=== PATIENT | male | born 1980 | race Caucasian/White ===

== ENCOUNTER 2018-02-20 12:41 | Emergency (ER) | payer OTHER ==
[2018-02-20 13:17] LABS: MEAN CORPUSCULAR HEMOGLOBIN 30.7 pg (27.0-33.4); MEAN CORPUSCULAR HGB CONC 34.2 g/dL (32.0-36.0); MEAN CORPUSCULAR VOLUME 90 fl (80-97); PLATELET COUNT 270 10^3/uL (150-450); RED BLOOD COUNT 6.56 10^6/uL (4.35-5.55); WHITE BLOOD COUNT 9.7 10^3/uL (4.0-10.5)
[2018-02-20 13:23] LABS: HEMATOCRIT 58.8 % (37.9-51.0)
[2018-02-20 13:35] LABS: ALANINE AMINOTRANSFERASE 43 U/L (21-72); ALBUMIN 4.9 g/dL (3.5-5.0); ALKALINE PHOSPHATASE 98 U/L (38-126); ANION GAP 15 (5-19); ASPARTATE AMINO TRANSFERASE 23 U/L (17-59); BILIRUBIN,DIRECT 0.3 mg/dL (0.0-0.4); BLOOD UREA NITROGEN 18 mg/dL (7-20); CALCIUM 10.1 mg/dL (8.4-10.2); CARBON DIOXIDE 30 mmol/L (22-30); CHLORIDE 101 mmol/L (98-107); GLUCOSE 97 mg/dL (75-110); POTASSIUM 4.5 mmol/L (3.6-5.0); SODIUM 145.7 mmol/L (137-145); TOTAL PROTEIN 8.2 g/dL (6.3-8.2)
[2018-02-20 13:36] LABS: ACETAMINOPHEN < 10 ug/mL (10-30); ALCOHOL < 10 mg/dL (NONE DETECTED); SALICYLATE < 1.0 mg/dL (2.0-20.0)
--- NOTE | 2018-02-20 13:43 | ER Document Report ---
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 Family is concerned about self-harm gestures. They note that he may have taken 28 tablets over the last day pt denies self harm, but family notes that he has been saying how he cant do this anymore TRAVEL OUTSIDE OF THE [place] IN LAST 30 DAYS: No - HPI Onset: Yesterday Onset/Duration: Sudden Quality of pain: No pain Severity: Mild Pain Level: Denies Associated symptoms: Other Exacerbated by: Denies Relieved by: Denies Similar symptoms previously: No Recently seen / treated by doctor: No - Related Data Allergies/Adverse Reactions: levofloxacin [From Levaquin] Allergy (Verified 02/20/18 13:05) Past Medical History - Social History Smoking Status: Never Smoker Cigarette use (# per day): No Chew tobacco use (# tins/day): No Smoking Education Provided: No Frequency of alcohol use: None Drug Abuse: None Family History: Reviewed & Not Pertinent Patient has suicidal ideation: No Patient has homicidal ideation: No Renal/ Medical History: Denies: Hx Peritoneal Dialysis Review of Systems - Review of Systems Notes: REVIEW OF SYSTEMS: CONSTITUTIONAL : Denies fever, chills, or sweats. Denies recent illness. EENT: Denies eye, ear, throat, or mouth pain or symptoms. Denies nasal or sinus congestion or discharge. Denies throat, tongue, or mouth swelling or difficulty swallowing. CARDIOVASCULAR: Denies chest pain. Denies palpitations or racing or irregular heart beat. Denies ankle edema. RESPIRATORY: Denies cough, cold, or chest congestion. Denies shortness of breath, difficulty breathing, or wheezing. GASTROINTESTINAL: Denies abdominal pain or distention. Denies nausea, vomiting , or diarrhea. Denies blood in vomitus, stools, or per rectum. Denies black, tarry stools. Denies constipation. GENITOURINARY: Denies difficulty urinating, painful urination, burning, frequency, blood in urine, or discharge. MUSCULOSKELETAL: Denies back or neck pain or stiffness. Denies joint pain or swelling. SKIN: Denies rash, lesions or sores. HEMATOLOGIC : Denies easy bruising or bleeding. LYMPHATIC: Denies swollen, enlarged glands. NEUROLOGICAL: Denies confusion or altered mental status. Denies passing out or loss of consciousness. Denies dizziness or lightheadedness. Denies headache. Denies weakness or paralysis or loss of use of either side. Denies problems with gait or speech. Denies sensory loss, numbness, or tingling. Denies seizures. PSYCHIATRIC: Initially denied suicidal ideations ALL OTHER SYSTEMS REVIEWED AND NEGATIVE. Dictation was performed using [employer] voice recognition software PHYSICAL EXAMINATION: GENERAL: Well-appearing, well-nourished and in no acute distress. HEAD: Atraumatic, normocephalic. EYES: Pupils equal round and reactive to light, extraocular movements intact, sclera anicteric, conjunctiva are normal. ENT: Nares patent, oropharynx clear without exudates. Moist mucous membranes. NECK: Normal range of motion, supple without lymphadenopathy LUNGS: Breath sounds clear to auscultation bilaterally and equal. No wheezes rales or rhonchi. HEART: Mild tachycardia ABDOMEN: Soft, nontender, nondistended abdomen. No guarding, no rebound. No masses appreciated. Musculoskeletal: Normal range of motion, no pitting or edema. No cyanosis. NEUROLOGICAL: Cranial nerves grossly intact. Normal speech, normal gait. Normal sensory, motor exams PSYCH: Flat affect SKIN: Warm, Dry, normal turgor, no rashes or lesions noted. Physical Exam - Vital signs Vitals: Resp Pulse Ox 31 H 98 02/20/18 12:52 02/20/18 12:52 Course - Re-evaluation Re-evalutation: 02/20/18 18:45 Patient's hemoglobin is noted to be elevated, this may require evaluation at some point, patient was made aware, otherwise he is medically stable and appropriate for evaluation by mental health, family is quite concerned about his behavior and I agree with her concerns - Vital Signs Vital signs: Temp Pulse Resp BP Pulse Ox 98.0 F 20 131/94 H 98 02/20/18 18:44 02/20/18 17:00 02/20/18 16:01 02/20/18 17:00 - Laboratory Result Diagrams: 02/20/18 13:01 02/20/18 13:01 Laboratory results interpreted by me: 02/20/18 02/20/18 02/20/18 13:01 13:01 16:40 RBC 6.56 H Hgb 20.1 H* Hct 58.8 H Seg Neuts % (Manual) 81 H Lymphocytes % (Manual) 6 L Sodium 145.7 H Urine Ketones TRACE H Salicylates < 1.0 L Acetaminophen < 10 L Discharge - Discharge Clinical Impression: Suicidal ideation, Elevated hemoglobin Condition: Stable Disposition: PSYCH HOSP/UNIT Referrals: APOLONIA BECERRA MD [Primary Care Provider] - Follow up as needed
[2018-02-20 13:57] LABS: ABSOLUTE MONOCYTES # (MANUAL) 0.9 10^3/uL (0.1-1.4); ABSOLUTE NEUTROPHILS# (MANUAL) 7.9 10^3/uL (1.7-8.2); BASOPHILS % (MANUAL) 0 % (0-2); EOSINOPHILS % (MANUAL) 0 % (0-6); LYMPHOCYTES % (MANUAL) 6 % (13-45); MONOCYTES % (MANUAL) 9 % (3-13); SEGMENTED NEUTROPHILS % (MAN) 81 % (42-78); TOTAL CELLS COUNTED 100
[2018-02-20 13:58] LABS: PLATELET COMMENT ADEQUATE; RBC MORPHOLOGY COMMENT NORMO-CYTIC/CHROMIC; TOXIC GRANULATION SLIGHT; TOXIC VACUOLATION PRESENT
[2018-02-20 14:00] LABS: HEMOGLOBIN 20.1 g/dL (13.5-17.0)
[2018-02-20 17:12] LABS: APPEARANCE,URINE CLEAR; BILIRUBIN,URINE NEGATIVE (NEGATIVE); COLOR,URINE YELLOW; GLUCOSE, URINE NEGATIVE (NEGATIVE); KETONES,URINE TRACE mg/dL (NEGATIVE); LEUKOCYTE ESTERASE,URINE NEGATIVE (NEGATIVE); NITRITE,URINE NEGATIVE (NEGATIVE); PROTEIN,URINE NEGATIVE (NEGATIVE); UROBILINOGEN,URINE NEGATIVE mg/dL (<2.0)
[2018-02-20 17:45] LABS: URINE AMPHETAMINES SCREEN NEGATIVE; URINE BARBITURATES SCREEN NEGATIVE; URINE BENZODIAZEPINES SCREEN NEGATIVE; URINE COCAINE SCREEN NEGATIVE; URINE MARIJUANA (THC) SCREEN NEGATIVE; URINE METHADONE SCREEN NEGATIVE; URINE PHENCYCLIDINE SCREEN NEGATIVE
[2018-02-20] MEDS ORDERED: NORMAL SALINE 1000 ML 1,000 ML IV ONE (18:49)
--- NOTE | 2018-02-20 22:26 | EKG REPORT ---
SEVERITY:- BORDERLINE ECG - SINUS TACHYCARDIA BORDERLINE T WAVE ABNORMALITIES : Confirmed by: Jameel Cee 20-Feb-2018 22:26:12
--- NOTE | 2018-02-21 07:26 | PSYCHOLOGICAL NOTE ---
Psych Note - Psych Note Psych Note: Reason for consult: Suicidal ideation/ overdose Contact Permissions: Ronnie Sterling . Brittany Sterling, Perla Sterling, and Carlota Sterling ( patient's ) [phone] Patient is a 37-year-old male. Patient reports he feels like the stress was closing in on him. She reports recently he had a drug test at his work and has not had the results yet. Patient reports oxycodones went missing from the [facility]. Patient reports he has a prescription for oxycodone so he knows he is going to test positive. Patient reports he is worried he is going to lose his job. Patient reports he is worried that he is going to fail his . Patient reports they just contracted for a new home that is currently in the process of being built. Patient stated "I am afraid I am not going to be able to give my the dream home she wanted". Patient reports he took an unknown amount of Benadryl to "sleep everything away". Patient reports he just wants all his troubles to go away. Patient reports he has never been to a psychiatric hospital, has any mental health family history, or received a diagnosis for mental health. Patient reports he has one 5-year-old child. Collateral Information : Perla Sterling ( Patient's sister is present): Patient's sister reports she believes her brother is emotionally upset over the thought of losing his job. Patient's sister reports he has been saying since Tuesday "I cannot do this anymore" and calling family crying on the phone. Patient's sister reports patient has a history of self-harm as a younger child to include hitting himself in the head and pounding his chest with his fist. Patient's sister reports patient does everything 110% and so he is on a lot of responsibility. Patient's sister reports patient has destructive behaviors and believes he scratched his face Tuesday afternoon. Patient's sister reports he was texting her "I tried to OD" and the text messages started to not make any sense starting Tuesday evening. Patient's sister reports she felt he was depressed and with him being in trouble he was taking the Benadryl for it. Patient's sister reports patient has addictive behaviors and believes he is addicted to painkillers but states they are prescribed due to his 2 surgeries. 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 Patient's father reports patient is a hard worker and when he puts his mind to something he gets it done. Patient's father reports he noticed his son had not slept on both Tuesday and Tuesday. Patient's father reports they were not aware until recently about him being worried about losing his job. Patient's father reports he is currently in chemotherapy. Patient's : Gali who is also present Patient's reports she was not aware of the drug screen until recently. Patient's reports that she thought he was sleeping Tuesday evening because he had not slept Tuesday and Tuesday. Patient's reports she then noticed that he was taking a lot of Benadryl so she had a bottle of Benadryl, patient then drove to the store to purchase more Benadryl. Patient's reports she did not know how serious this was until her [id number] told her. Patient's reports they have 3 children living in the home. Diagnosis: V 62.29 (V 56.9) other problem related to employment Impression/plan: Recommendation for 24-hour petition/hold. Clinician observed patient reported to his sister allegedly that he was "trying to OD". Clinician observed patient is guarded and currently drowsy due to the amount of Benadryl he took. Clinician observed patient reports stress related to his occupation, and risk of losing job over a failed drug screen. Mental health to re-assess at a later time. Attending physician in agreement with plan. Consulted with Dr. Guerrero regarding the management and care of patient.
[2018-02-21 10:17] LABS: ABSOLUTE EOSINOPHILS # (AUTO) 0.3 10^3/uL (0.0-0.6); ABSOLUTE LYMPHOCYTES (AUTO) 1.1 10^3/uL (0.5-4.7); ABSOLUTE MONOCYTES (AUTO) 0.9 10^3/uL (0.1-1.4); ABSOLUTE NEUT (AUTO) 6.8 10^3/uL (1.7-8.2); BASOPHILS % (AUTO) 0.5 % (0-2); HEMATOCRIT 54.3 % (37.9-51.0); HEMOGLOBIN 18.6 g/dL (13.5-17.0); LYMPHOCYTES % (AUTO) 12.2 % (13-45); MEAN CORPUSCULAR HEMOGLOBIN 30.9 pg (27.0-33.4); MEAN CORPUSCULAR HGB CONC 34.3 g/dL (32.0-36.0); MEAN CORPUSCULAR VOLUME 90 fl (80-97); MONOCYTES % (AUTO) 10.3 % (3-13); PLATELET COUNT 231 10^3/uL (150-450); RED BLOOD COUNT 6.02 10^6/uL (4.35-5.55); RED CELL DISTRIBUTION WIDTH 13.6 % (11.5-14.0); TOTAL CELLS COUNTED % (AUTO) 100 %; WHITE BLOOD COUNT 9.1 10^3/uL (4.0-10.5)
--- NOTE | 2018-02-21 11:06 | PSYCHOLOGICAL NOTE ---
Psych Note - Psych Note Psych Note: Reason for evaluation: Alleged intentional overdose Contact Permissions: Ronnie Sterling . Brittany Asher, Perla Asher, and Carlota Sterling ( patient's ) [phone] Patient is a 37-year-old male. Patient reports he was able to get 7 hours of sleep last night. Patient reports he had not slept at all Tuesday night and Tuesday night. Patient reports he feels like because he had not slept and just wanted to sleep he was not making the best decisions regarding how many pills of Benadryl he took. Patient reports he knows that more it does not always mean better. Patient reports the situation at work was causing him stress but he feels he has come up with a solution with his family as they have already spoken with a stove carriage operator. 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 Patient reports he has had a lot of time to talk to family and feels he has a great support system. Patient reports he does have a firearm in the house and is willing to have either his father or sister remove the firearm until he is able to get a full assessment from an outpatient provider. Patient reports he has never had outpatient therapy and feels that he could use the skills and someone to talk to to learn how to cope with life stresses. Collateral information: Patient's sister Gali who was present Patient's sister reports now that patient is not groggy they had a lot of time to talk and states they are not concerned that it was intentional to kill himself. Patient's sister reports she feels now that it was mainly just self harming behaviors that he has always had since childhood. Patient's sister reports that he has never had the opportunity to talk to someone about his stressors and get the outpatient therapy that he needs. Patient's sister reports that they feel outpatient would be the best start to come up with a solution for the problems that he is facing at work. Patient's sister reports that they all will continuously check in on him and someone will be with him until he gets the appointment. Patient's sister reports they will remove the firearms from the house and safety plan in the home until he receives the assessment. Patient's sister reports he looks and sounds much better now that he is finally slapped and feels that the lack of sleep is definitely contributing to everything he was feeling and stated I do not know if it was the Benadryl or not sleeping but I think he was hallucinating and just not speaking right. Patient's sister reports that the problem has not gotten better but that he does not know how to process and thinks resources would address that problem. Diagnosis: V 62.29 (V 56.9) other problem related to employment Impression/Plan: Recommendation to rescind involuntary commitment due to patient not meeting criteria [place] GS 122C. Patient is psychiatrically cleared for discharge. Mental health coordinated with patient's family, patient's sister Gali and father Chuck agreed to remove patient's firearm from his home. Patient's family agreed to safety plan in the home and closely monitor patient until he received an additional assessment at an outpatient therapy provider. Patient's family stated they will do the research for a provider in their area as they want to choose one carefully and will make the appointment themselves and transport patient to his appointment. Clinician observed patient is not endorsing suicidal or homicidal ideation and stated that he did not have intent or plan to harm himself. Attending physician in agreement with disposition. Consulted with Dr. Guerrero regarding the management and care of patient.
[2018-02-21 12:54] VITALS: BP 121/73
== END 2018-02-21 12:54 | disposition home or self-care (01) ==
LOC: ER 12:41
DX: R45.851 Suicidal ideations (principal); D75.1 Secondary polycythemia; Z60.9 Problem related to social environment, unspecified; Z56.9 Unspecified problems related to employment; D58.2 Other hemoglobinopathies; T45.0X1A Poisoning by antiallergic and antiemetic drugs, accidental (unintentional), initial encounter; Y92.009 Unspecified place in unspecified non-institutional (private) residence as the place of occurrence of the external cause
CPT/HCPCS: 93005; 99285; 96360; 36415; 80307 ×4; 85025; 80053; 81001; 93010; J7030

== ENCOUNTER → 2020-07-11 | Day surgery (SDC) | payer OTHER ==
--- NOTE | 2020-07-11 16:05 | RADIOLOGY REPORT (SQ) ---
EXAM DESCRIPTION: ARTHRO SHOULDER INJECTION; FLUORO/NEEDLE PLACEMENT IMAGES COMPLETED DATE/TIME: 07/11/2020 3:43 pm REASON FOR STUDY: M75.102 UNSP ROTATR-CUFF TEAR/RUPTR OF LEFT SHOULDER, NOT TRAUMA M75.102 UNSP ROT ATR-CUFF TEAR/RUPTR OF LEFT SHOULDER, NOT TR COMPARISON: None. FLUOROSCOPY TIME: FT: 0.2 minutes. 1 image submitted to PACS. LIMITATIONS: None. PROCEDURE: Procedure, risks, benefits and alternatives explained to patient who then gave written co nsent. The left shoulder was marked and a time out was called for correct procedure verification. Po sterior entry site marked using fluoroscopic guidance. Shoulder prepped and draped using sterile caren hnique. Local anesthesia achieved using 1% lidocaine injection. Hypodermic needle introduced into t he joint space under direct fluoroscopic visualization. 1 mL Omnipaque 300 instilled to confirm intr a-articular position. Dilute gadolinium solution then injected. Needle removed and entry site covere d with sterile bandage. No immediate complications noted. TECHNIQUE: Digital images acquired during fluoroscopy and stored on PACS. Patient immediately take n to the MR suite for additional imaging. INJECTION LOCATION: Posterior left shoulder. CONTRAST TYPE AND AMOUNT: 10 mL Prohance/Saline mixture. IMPRESSION: SUCCESSFUL NEEDLE PLACEMENT AND INJECTION FOR LEFT SHOULDER MR ARTHROGRAM USING POSTERIO R APPROACH. COMMENT: Quality ID 145: Final reports for procedures using fluoroscopy that document radiation exp osure indices, or exposure time and number of fluorographic images (if radiation exposure indices are not available) TECHNICAL DOCUMENTATION: JOB ID: [id number] 2010 [employer]- All Rights Reserved Reading location - IP/workstation name: [email or web address] [id number]
--- NOTE | 2020-07-11 16:05 | RADIOLOGY REPORT (SQ) ---
EXAM DESCRIPTION: ARTHRO SHOULDER INJECTION; FLUORO/NEEDLE PLACEMENT IMAGES COMPLETED DATE/TIME: 07/11/2020 3:43 pm REASON FOR STUDY: M75.102 UNSP ROTATR-CUFF TEAR/RUPTR OF LEFT SHOULDER, NOT TRAUMA M75.102 UNSP ROT ATR-CUFF TEAR/RUPTR OF LEFT SHOULDER, NOT TR COMPARISON: None. FLUOROSCOPY TIME: FT: 0.2 minutes. 1 image submitted to PACS. LIMITATIONS: None. PROCEDURE: Procedure, risks, benefits and alternatives explained to patient who then gave written co nsent. The left shoulder was marked and a time out was called for correct procedure verification. Po sterior entry site marked using fluoroscopic guidance. Shoulder prepped and draped using sterile caren hnique. Local anesthesia achieved using 1% lidocaine injection. Hypodermic needle introduced into t he joint space under direct fluoroscopic visualization. 1 mL Omnipaque 300 instilled to confirm intr a-articular position. Dilute gadolinium solution then injected. Needle removed and entry site covere d with sterile bandage. No immediate complications noted. TECHNIQUE: Digital images acquired during fluoroscopy and stored on PACS. Patient immediately take n to the MR suite for additional imaging. INJECTION LOCATION: Posterior left shoulder. CONTRAST TYPE AND AMOUNT: 10 mL Prohance/Saline mixture. IMPRESSION: SUCCESSFUL NEEDLE PLACEMENT AND INJECTION FOR LEFT SHOULDER MR ARTHROGRAM USING POSTERIO R APPROACH. COMMENT: Quality ID 145: Final reports for procedures using fluoroscopy that document radiation exp osure indices, or exposure time and number of fluorographic images (if radiation exposure indices are not available) TECHNICAL DOCUMENTATION: JOB ID: [id number] 2010 [employer]- All Rights Reserved Reading location - IP/workstation name: [email or web address] [id number]
--- NOTE | 2020-07-11 16:40 | RADIOLOGY REPORT (SQ) ---
EXAM DESCRIPTION: MRI LT UPPER JOINT WITH IMAGES COMPLETED DATE/TIME: 07/11/2020 3:15 pm TECHNIQUE: Left shoulder images acquired and stored on PACS. Oblique coronal, oblique sagittal, and axial imaging to include fat sensitive sequences as T1, water sensitive sequences as FST2/STIR, and c ontrast sensitive sequences as FST1. . LIMITATIONS: None. FINDINGS: JOINT DISTENTION: Adequate distention for interpretation. BONE MARROW AND CORTEX: Normal. No significant osteophytes. No edema or defects. AC JOINT: Type II acromion. No significant AC joint arthropathy. GLENOHUMERAL JOINT: No subluxation or dislocation. No focal chondral defects or reactive bone changes . ROTATOR CUFF: There is thickening and abnormal signal in the subscapularis tendon, consistent with te ndinosis. Supraspinatus, infraspinatus, and teres minor tendons are intact with normal alignment and appearance. LABRUM AND BICEPS LABRAL COMPLEX: Normal signal in the rotator interval without tear of the superior glenohumeral ligament. Superior labrum, intra-articular long head biceps intact. Distal biceps in no rmal anatomic location in bicipital groove. No paralabral cysts. INFERIOR LABRAL COMPLEX: Bony glenoid and labrum intact. IGHL intact without thickening or tear. No p aralabral cysts. ADJACENT SOFT TISSUES: No masses or nodes. OTHER: No other significant finding. IMPRESSION: 1. Subscapularis tendinosis. 2. No rotator cuff or labral tear. TECHNICAL DOCUMENTATION: JOB ID: [id number] 2010 [employer]- All Rights Reserved REASON FOR STUDY: M75.102 UNSP ROTATR-CUFF TEAR/RUPTR OF LEFT SHOULDER, NOT TRAUMA M75.102 UNSP ROT ATR-CUFF TEAR/RUPTR OF LEFT SHOULDER, NOT TR M75.102 UNSP ROTATR-CUFF TEAR/RUPTR OF LEFT SHOULDER, NOT TRAUMA M75.102 UNSP ROTATR-CUFF TEAR/RUPTR OF LEFT SHOULDER, NOT TR. Left shoulder pain and decreased range of motion with sharp pain mainly a t night for the past 3- 4 months. Previous history of surgery in 2018. Status post left pectoralis muscle repair with dermal allograft in 2018. No new injury. COMPARISON: None. Reading location - IP/workstation name: [email or web address]
== END ==
LOC: RAD 11:49
PROVIDERS: ATTEND Physician Assistant
DX: M75.82 Other shoulder lesions, left shoulder (principal)
CPT/HCPCS: 73222; 77002; 23350; A9576